=== PATIENT | male | born 1990 | race Caucasian/White ===

== ENCOUNTER 2019-01-25 20:25 | Emergency (ER) | payer OTHER ==
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
== END 2019-01-25 21:00 | disposition home or self-care (01) ==
LOC: JD.ED 20:25
DX: S50.12XA Contusion of left forearm, initial encounter (principal); V49.49XA Driver injured in collision with other motor vehicles in traffic accident, initial encounter
CPT/HCPCS: 99282; 99283